=== PATIENT | male | born 1955 | race African-American/Black ===

== ENCOUNTER 2018-03-10 12:53 | Emergency (ER) | payer MEDICAID ==
[~2018-03-10] VITALS: Ht 170.2 cm; Wt 79.4 kg
[2018-03-10 12:55] VITALS: BP 160/105
== END 2018-03-10 13:44 | disposition home or self-care (01) ==
LOC: ER 12:56
DX: M25.562 Pain in left knee (principal); M25.572 Pain in left ankle and joints of left foot; M54.89 Other dorsalgia; I10 Essential (primary) hypertension; Z90.5 Acquired absence of kidney; Z94.0 Kidney transplant status; V49.49XA Driver injured in collision with other motor vehicles in traffic accident, initial encounter; Y93.89 Activity, other specified; Y92.413 State road as the place of occurrence of the external cause; Y99.8 Other external cause status
CPT/HCPCS: 99283; A4606; Z7610